=== PATIENT | male | born 1970 | race Caucasian/White ===

== ENCOUNTER 2016-09-17 10:29 | Inpatient (IN) | payer OTHER ==
[2016-09-17 11:02] VITALS: BMI 35.6
--- NOTE | 2016-09-17 12:47 | HP ---
COWS - Scale Resting Pulse: 1= [place] 81-100 Sweatin=Flushed/Facial Moisture Restless Observation: 3= Extraneous Movement Pupil Size: 2= Moderately Dilated Bone or Joint Aches: 2= Severe Diffuse Aches Runny Nose/ Eye Tearin= Runny Nose/Eyes GI Upset > 30mins: 3= Vomiting/Diarrhea Tremor Observation: 2= Slight Tremor Visible Yawning Observation: 2= >3x During Session Anxiety or Irritability: 2=Irritable/Anxious Goose Flesh Skin: 0=Smooth Skin COWS Score: 21 CIWA Score - CIWA Score Nausea/Vomitin Muscle Tremors: 3 Anxiety: 3 Agitation: 3 Paroxysmal Sweats: 2 Orientation: 0-Oriented Tacttile Disturbances: 2-Mild Itch/Numbness/Burn Auditory Disturbances: 2-Mild Harshness/Frighten Visual Disturbances: 2-Mild Sensitivity Headache: 2-Mild CIWA-Ar Total Score: 22 Admission ROS BHS - HPI Chief Complaint: I NEED HELP TO STOP USING HEROIN AND ALCOHOL Allergies/Adverse Reactions: Allergies Allergy/AdvReac Type Severity Reaction Status Date / Time No Known Allergies Allergy Verified 09/17/16 11:51 History of Present Illness: THIS 46 YEARS OLD MALE WITH HEROIN AND ALCOHOL DEPENDENCE,WITHDRAWAL SYMPTOM, LAST DETOX 05/17/15 TO 05/20/15 MULTIPLE ADMISSIONS IN DETOX NICOTINE DEPENDENCE LONGEST PERIOD OF SOBRIETY 7 YEARS Exam Limitations: No Limitations - Ebola screening Have you traveled outside of the country in the last 21 days: No Have you been sick,other than usual withdrawal symptoms: No - Review of Systems Constitutional: Chills, Diaphoresis, Loss of Appetite, Malaise, Night Sweats, Changes in sleep, Weakness EENT: reports: Nose Congestion Respiratory: reports: No Symptoms reported GI: reports: Nausea, Poor Appetite, Vomiting, Abdominal cramping : reports: No Symptoms Reported Musculoskeletal: reports: Back Pain, Joint Pain, Muscle Pain, Joint Stiffness Integumentary: reports: Dryness Neuro: reports: Headache, Tremors Endocrine: reports: No Symptoms Reported Hematology: reports: No Symptoms Reported Psychiatric: reports: other Patient History - Patient Medical History Hx Anemia: No Hx Asthma: No Hx Chronic Obstructive Pulmonary Disease (COPD): No Hx Cancer: No Hx Cardiac Disorders: No Hx Congestive Heart Failure: No Hx Hypertension: No Hx Hypercholesterolemia: No Hx Pacemaker: No HX Cerebrovascular Accident: No Hx Seizures: No Hx Dementia: No Hx Diabetes: No Hx Gastrointestinal Disorders: No Hx Liver Disease: No Hx Genitourinary Disorders: No Hx Sexually Transmitted Disorders: No Hx Renal Disease (ESRD): No Hx Thyroid Disease: No Hx Human Immunodeficiency Virus (HIV): No (04/07 LAST NEGATIVE) Hx Hepatitis C: Yes (TREATED) Hx Depression: No Hx Suicide Attempt: No Hx Bipolar Disorder: No Hx Schizophrenia: No Other Medical History: NO SUICIDAL,NO HOMOCIDAL - Patient Surgical History Past Surgical History: No Hx Neurologic Surgery: No Hx Cataract Extraction: No Hx Cardiac Surgery: No Hx Lung Surgery: No Hx Breast Surgery: No Hx Breast Biopsy: No Hx Abdominal Surgery: No Hx Appendectomy: No Hx Cholecystectomy: No Hx Genitourinary Surgery: No Hx Section: No Hx Orthopedic Surgery: No Anesthesia Reaction: No - PPD History Previous Implant?: Yes Documented Results: Negative w/proof Implanted On Prior [facility] Admission?: Yes Date: 05/27/14 Results: 0 mm PPD to be Administered?: Yes - Smoking Cessation Smoking history: Current every day smoker Have you smoked in the past 12 months: Yes Aproximately how many cigarettes per day: 10 Cigars Per Day: 0 Hx Chewing Tobacco Use: No Initiated information on smoking cessation: Yes 'Breaking Loose' booklet given: 09/17/16 - Substance & Tx. History Hx Alcohol Use: Yes Hx Substance Use: Yes Substance Use Type: Alcohol, Heroin Hx Substance Use Treatment: Yes ([facility] 05/17/15 TO 05/20/15) - Substances Abused Heroin Route: Injection Frequency: Daily Amount used: 15 Age of first use: 14 Date of Last Use: 09/16/16 Alcohol-vodka/beer Route: Oral Frequency: Daily Amount used: 1-2 pts./2-6 pks. Age of first use: 24 Date of Last Use: 09/16/16 Family Disease History - Family Disease History Family Disease History: Diabetes: Father (alcoholism,), Heart Disease: Mother (HTN), Other: Father Admission Physical Exam BHS - Vital Signs Vital Signs: Vital Signs Temperature Pulse Rate 94 H 09/17/16 10:59 Respiratory Rate 20 09/17/16 10:59 Blood Pressure 141/108 09/17/16 10:59 O2 Sat by Pulse Oximetry (%) - Physical General Appearance: Yes: Moderate Distress, Tremorous, Irritable, Sweating, Anxious HEENTM: Yes: Nasal Congestion Respiratory: Yes: Lungs Clear Neck: Yes: Within Normal Limits Breast: Yes: Within Normal Limits Cardiology: Yes: Within Normal Limits, Regular Rhythm, Regular Rate, S1, S2 Abdominal: Yes: Within Normal Limits, Normal Bowel Sounds, Non Tender, Flat, Soft Genitourinary: Yes: Within Normal Limits Back: Yes: Muscle Spasm Musculoskeletal: Yes: Back pain, Joint Stiffness, Muscle Pain Extremities: Yes: Tremors 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 NML intact, Fully Oriented, Alert, Motor Strength 5/5 Integumentary: Yes: Dry Lymphatic: Yes: Within Normal Limits - Diagnostic (1) Alcohol dependence with uncomplicated withdrawal Current Visit: No Status: Chronic (2) Hepatitis C carrier Current Visit: No Status: Chronic (3) Nicotine dependence Current Visit: No Status: Chronic Cleared for Admission [facility] - Detox or Rehab [facility] Level of Care: Medically Managed Detox Regimen/Protocol: Methadone/Librium [facility] Breath Alcohol Content Breath Alcohol Content: 0.019 Urine Drug Screen - Results Drug Screen Negative: No Urine Drug Screen Results: OPI-Opiates, BZO-Benzodiazepines, MTD-Methadone
[2016-09-17] MEDS ORDERED: MAGNESIUM CITRATE 300 ML BOTTLE PO PRN (12:54)
[2016-09-17] MEDS ORDERED: MAGNESIUM HYDROX 2400MG/30ML ORAL SUSPENSION 30 ML CUP PO PRN (12:54)
[2016-09-17] MEDS ORDERED: MAG HYDROX/AL HYDROX/SIMETH 30 ML UNIT-DOSE CUP PO PRN (12:54)
[2016-09-17] MEDS ORDERED: ACETAMINOPHEN 325 MG TABLET (FP) PO PRN (12:54)
[2016-09-17] MEDS ORDERED: hydrOXYzine PAMOATE 50 MG CAPSULE (FP) PO PRN (12:54)
[2016-09-17] MEDS ORDERED: guaiFENesin/D-METHORPHAN HB 10 ML UNIT-DOSE CUPS PO PRN (12:54)
[2016-09-17] MEDS ORDERED: IBUPROFEN 400 MG TABLET (FP) PO PRN (12:54)
[2016-09-17] MEDS ORDERED: P-EPHED 60MG/TRIPROLIDI 2.5MG TABLET PO PRN (12:54)
[2016-09-17] MEDS ORDERED: LOPERAMIDE HCL 2 MG CAPSULE PO PRN (12:54)
[2016-09-17] MEDS ORDERED: MENTHOL/PHENOL 1 EACH UD MM PRN (12:54)
[2016-09-17] MEDS ORDERED: chlordiazePOXIDE HCL 25 MG CAPSULE PO PRN (12:54)
[2016-09-17] MEDS ORDERED: chlordiazePOXIDE HCL 25 MG CAPSULE PO ONE (13:01)
[2016-09-17] MEDS ORDERED: METHADONE HCL 10 MG TABLET (FOR DETOX USE ONLY) PO ONE ×2 (13:05→23:00)
[2016-09-17] MEDS: CYCLOBENZAPRINE HCL 10 MG TABLET (FP) PO PRN (13:38)
[2016-09-17] MEDS: NICOTINE 21 MG/24 HOURS TOPICAL PATCH TD SCH (13:40)
[2016-09-17 16:26] LABS: URINE APPEARANCE CLEAR; URINE BILIRUBIN NEGATIVE (NEGATIVE); URINE COLOR YELLOW; URINE GLUCOSE (UA) NEGATIVE (NEGATIVE); URINE KETONE NEGATIVE (NEGATIVE); URINE LEUK ESTERASE NEGATIVE (NEGATIVE); URINE NITRITE NEGATIVE (NEGATIVE); URINE PROTEIN NEGATIVE (NEGATIVE); URINE UROBILINOGEN NEGATIVE E.U./dl (0.2-1.0)
[2016-09-17 16:30] LABS: URINE BLOOD 1+ (NEGATIVE)
[2016-09-17 16:39] LABS: URINE MUCUS RARE; URINE RBC 13 /hpf (0-3); URINE WBC 3 /hpf (3-5)
--- NOTE | 2016-09-17 16:41 | EKG ---
Test Reason : Blood Pressure : / mmHG Vent. Rate : 089 BPM Atrial Rate : 089 BPM P-R Int : 170 ms QRS Dur : 096 ms QT Int : 380 ms P-R-T Axes : 041 -03 036 degrees QTc Int : 462 ms NORMAL SINUS RHYTHM NORMAL ECG NO PREVIOUS ECGS AVAILABLE Confirmed by MD JESSE, ORI ([id number]) on 09/17/2016 4:41:18 PM Referred By: Confirmed By:ORI MOLINA MD
[2016-09-17] MEDS: chlordiazePOXIDE HCL 25 MG CAPSULE PO SCH ×2 (17:18→23:17)
[2016-09-17] MEDS: THIAMINE HCL 100 MG TABLET (FP) PO SCH (23:15)
[2016-09-17] MEDS: cloNIDine HCL 0.1 MG TABLET PO SCH (23:15)
[2016-09-17] MEDS: diphenhydrAMINE HCL 50 MG CAPSULE PO PRN (23:19)
[2016-09-18] MEDS: chlordiazePOXIDE HCL 25 MG CAPSULE PO SCH ×4 (05:44→22:29)
[2016-09-18] MEDS ORDERED: METHADONE HCL 10 MG TABLET (FOR DETOX USE ONLY) PO SCH (10:00)
[2016-09-18 10:19] LABS: MCH 27.8 pg (25.7-33.7); MCHC 32.6 g/dl (32.0-35.9); MEAN CELL VOLUME 85.5 fl (80-96); MEAN PLT VOLUME 9.6 fl (7.5-11.1); PLATELET COUNT 159 K/MM3 (134-434); RDW 14.4 % (11.9-15.9); WHITE BLOOD COUNT 10.1 K/mm3 (4.0-10.0)
[2016-09-18 10:35] LABS: ALBUMIN 3.9 g/dl (3.4-5.0); ALK PHOS 74 U/L (45-117); ANION GAP 8 (8-16); BILIRUBIN,TOTAL 0.5 mg/dL (0.2-1.0); CALCIUM 8.6 mg/dL (8.5-10.1); CO2 32 mmol/L (21-32); CREATININE 1.1 mg/dL (0.7-1.3); GLUCOSE,RANDOM 106 mg/dL (74-106); SGOT/AST 70 U/L (15-37); SGPT/ALT 41 U/L (12-78); TOT PROT 7.2 g/dl (6.4-8.2)
[2016-09-18] MEDS: NICOTINE 21 MG/24 HOURS TOPICAL PATCH TD SCH (10:51)
[2016-09-18] MEDS: cloNIDine HCL 0.1 MG TABLET PO SCH ×2 (10:52→22:29)
[2016-09-18] MEDS: PRENATAL VITAMINS W/ FOLIC ACID TABLET (FP) PO SCH (10:52)
--- NOTE | 2016-09-18 13:17 | PN ---
S CIWA - CIWA Score Nausea/Vomitin Muscle Tremors: 3 Anxiety: 4-Mod. Anxious/Guarded Agitation: 4-Moderately Restless Paroxysmal Sweats: No Perspiration Orientation: 0-Oriented Tacttile Disturbances: 1-Very Mild Itch/Numbness Auditory Disturbances: 0-None Visual Disturbances: 0-None Headache: 4-Moderately Severe CIWA-Ar Total Score: 19 BHS COWS - Scale Resting Pulse: 0= [place] 80 or Below Sweatin= Chills/Flushing Restless Observation: 1= Difficult to Sit Still Pupil Size: 1= Pupils >than Normal Bone or Joint Aches: 2= Severe Diffuse Aches Runny Nose/ Eye Tearin= Runny Nose/Eyes GI Upset > 30mins: 2= Nausea/Diarrhea Tremor Observation of Outstretched Hands: 1= Tremor [place], Not Seen Yawning Observation: 1= 1-2x During Session Anxiety or Irritability: 2=Irritable/Anxious Goose Flesh Skin: 0=Smooth Skin COWS Score: 13 S Progress Note (SOAP) Subjective: Restlessness, Anxiety, Tremors, Reports sweating Objective: Vital Signs Temperature 96.9 F L 09/18/16 09:57 Pulse Rate 78 09/18/16 09:57 Respiratory Rate 19 09/18/16 09:57 Blood Pressure 142/68 09/18/16 09:57 O2 Sat by Pulse Oximetry (%) Laboratory Last Values WBC 10.1 K/mm3 (4.0-10.0) H D 09/18/16 06:20 RBC 5.44 M/mm3 (4.00-5.60) 09/18/16 06:20 Hgb 15.2 GM/dL (11.7-16.9) 09/18/16 06:20 Hct 46.6 % (35.4-49) 09/18/16 06:20 MCV 85.5 fl (80-96) 09/18/16 06:20 MCHC 32.6 g/dl (32.0-35.9) 09/18/16 06:20 RDW 14.4 % (11.9-15.9) 09/18/16 06:20 Plt Count 159 K/MM3 (134-434) 09/18/16 06:20 MPV 9.6 fl (7.5-11.1) D 09/18/16 06:20 Sodium 140 mmol/L (136-145) 09/18/16 06:20 Potassium 3.7 mmol/L (3.5-5.1) 09/18/16 06:20 Chloride 100 mmol/L (98-107) 09/18/16 06:20 Carbon Dioxide 32 mmol/L (21-32) D 09/18/16 06:20 Anion Gap 8 (8-16) 09/18/16 06:20 BUN 13 mg/dL (7-18) 09/18/16 06:20 Creatinine 1.1 mg/dL (0.7-1.3) D 09/18/16 06:20 Creat Clearance w eGFR > 60 (>60) 09/18/16 06:20 Random Glucose 106 mg/dL (74-106) D 09/18/16 06:20 Calcium 8.6 mg/dL (8.5-10.1) 09/18/16 06:20 Total Bilirubin 0.5 mg/dL (0.2-1.0) D 09/18/16 06:20 AST 70 U/L (15-37) H D 09/18/16 06:20 ALT 41 U/L (12-78) D 09/18/16 06:20 Alkaline Phosphatase 74 U/L (45-117) D 09/18/16 06:20 Total Protein 7.2 g/dl (6.4-8.2) 09/18/16 06:20 Albumin 3.9 g/dl (3.4-5.0) D 09/18/16 06:20 Urine Color Yellow 09/17/16 14:00 Urine Appearance Clear 09/17/16 14:00 Urine pH 6.0 (5.0-8.0) 09/17/16 14:00 Ur Specific [place] 1.017 (1.001-1.035) 09/17/16 14:00 Urine Protein Negative (NEGATIVE) 09/17/16 14:00 Urine Glucose (UA) Negative (NEGATIVE) 09/17/16 14:00 Urine Ketones Negative (NEGATIVE) 09/17/16 14:00 Urine Blood 1+ (NEGATIVE) H 09/17/16 14:00 Urine Nitrite Negative (NEGATIVE) 09/17/16 14:00 Urine Bilirubin Negative (NEGATIVE) 09/17/16 14:00 Urine Urobilinogen Negative E.U./dl (0.2-1.0) 09/17/16 14:00 Ur Leukocyte Esterase Negative (NEGATIVE) 09/17/16 14:00 Urine RBC 13 /hpf (0-3) 09/17/16 14:00 Urine WBC 3 /hpf (3-5) 09/17/16 14:00 Urine Mucus Rare 09/17/16 14:00 Hepatitis C Antibody >11.0 s/co ratio (0.0-0.9) H 09/17/16 12:00 labs noted Assessment: withdrawal symptoms Plan: Continue Detox
[2016-09-18] MEDS ORDERED: IBUPROFEN 600 MG TABLET (FP) PO PRN (13:46)
[2016-09-18] MEDS: THIAMINE HCL 100 MG TABLET (FP) PO SCH (22:29)
[2016-09-18] MEDS: diphenhydrAMINE HCL 50 MG CAPSULE PO PRN (22:30)
[2016-09-19] MEDS: chlordiazePOXIDE HCL 25 MG CAPSULE PO SCH ×2 (06:00→10:40)
[2016-09-19] MEDS: cloNIDine HCL 0.1 MG TABLET PO SCH ×2 (10:40→22:40)
[2016-09-19] MEDS: METHADONE HCL 5 MG TABLET (FOR DETOX USE ONLY) PO SCH (10:40)
[2016-09-19] MEDS: PRENATAL VITAMINS W/ FOLIC ACID TABLET (FP) PO SCH (10:40)
[2016-09-19] MEDS: NICOTINE 21 MG/24 HOURS TOPICAL PATCH TD SCH (10:41)
--- NOTE | 2016-09-19 16:14 | PN ---
S CIWA - CIWA Score Nausea/Vomitin Muscle Tremors: 4-Moderate,w/Arms Extend Anxiety: 4-Mod. Anxious/Guarded Agitation: 4-Moderately Restless Paroxysmal Sweats: No Perspiration Orientation: 0-Oriented Tacttile Disturbances: 1-Very Mild Itch/Numbness Auditory Disturbances: 3-Moderate Harsh/Frighten Visual Disturbances: 0-None Headache: 1-Very Mild CIWA-Ar Total Score: 20 BHS COWS - Scale Resting Pulse: 1= [place] 81-100 Sweatin= Chills/Flushing Restless Observation: 3= Extraneous Movement Pupil Size: 0= Normal to Room Light Bone or Joint Aches: 2= Severe Diffuse Aches Runny Nose/ Eye Tearin= Runny Nose/Eyes GI Upset > 30mins: 2= Nausea/Diarrhea Tremor Observation of Outstretched Hands: 2= Slight Tremor Visible Yawning Observation: 0= None Anxiety or Irritability: 2=Irritable/Anxious Goose Flesh Skin: 0=Smooth Skin COWS Score: 15 S Progress Note (SOAP) Subjective: Anxious, sweating, interrupted sleep, nausea, tremor, back pain Objective: 09/19/16 16:13 Last Vital Signs Temp Pulse Resp BP Pulse Ox 97.0 F L 82 18 142/103 09/19/16 13:39 09/19/16 15:00 09/19/16 13:39 09/19/16 15:00 Laboratory Tests 09/17/16 09/17/16 09/18/16 12:00 14:00 06:20 WBC 10.1 H D RBC 5.44 Hgb 15.2 Hct 46.6 MCV 85.5 MCHC 32.6 RDW 14.4 Plt Count 159 MPV 9.6 D Sodium Potassium Chloride Carbon Dioxide Anion Gap BUN Creatinine Creat Clearance w eGFR Random Glucose Calcium Total Bilirubin AST ALT Alkaline Phosphatase Total Protein Albumin Urine Color Yellow Urine Appearance Clear Urine pH 6.0 Ur Specific [place] 1.017 Urine Protein Negative Urine Glucose (UA) Negative Urine Ketones Negative Urine Blood 1+ H Urine Nitrite Negative Urine Bilirubin Negative Urine Urobilinogen Negative Ur Leukocyte Esterase Negative Urine RBC 13 Urine WBC 3 Urine Mucus Rare RPR Titer Hepatitis C Antibody >11.0 H 09/18/16 09/18/16 06:20 06:20 WBC RBC Hgb Hct MCV MCHC RDW Plt Count MPV Sodium 140 Potassium 3.7 Chloride 100 Carbon Dioxide 32 D Anion Gap 8 BUN 13 Creatinine 1.1 D Creat Clearance w eGFR > 60 Random Glucose 106 D Calcium 8.6 Total Bilirubin 0.5 D AST 70 H D ALT 41 D Alkaline Phosphatase 74 D Total Protein 7.2 Albumin 3.9 D Urine Color Urine Appearance Urine pH Ur Specific [place] Urine Protein Urine Glucose (UA) Urine Ketones Urine Blood Urine Nitrite Urine Bilirubin Urine Urobilinogen Ur Leukocyte Esterase Urine RBC Urine WBC Urine Mucus RPR Titer Nonreactive Hepatitis C Antibody Labs noted Assessment: 09/19/16 16:13 Withdrawal symptoms Plan: Continue detox, continue clonidine for elevated blood pressure
[2016-09-19] MEDS ORDERED: amLODIPine BESYLATE 5 MG TABLET (FP) PO ONE (16:38)
[2016-09-19] MEDS: chlordiazePOXIDE 5 MG CAPSULE PO SCH ×2 (17:40→22:40)
[2016-09-19] MEDS: THIAMINE HCL 100 MG TABLET (FP) PO SCH (22:40)
[2016-09-19] MEDS: amLODIPine BESYLATE 5 MG TABLET (FP) PO SCH (22:40)
[2016-09-19] MEDS: diphenhydrAMINE HCL 50 MG CAPSULE PO PRN (22:41)
[2016-09-20] MEDS: chlordiazePOXIDE 5 MG CAPSULE PO SCH ×2 (05:30→10:31)
[2016-09-20] MEDS ORDERED: ONDANSETRON *ODT* 4 MG TABLET SL PRN (09:30)
[2016-09-20] MEDS ORDERED: ONDANSETRON *ODT* 4 MG TABLET SL ONE (09:45)
[2016-09-20] MEDS: NICOTINE 21 MG/24 HOURS TOPICAL PATCH TD SCH (10:30)
[2016-09-20] MEDS: PRENATAL VITAMINS W/ FOLIC ACID TABLET (FP) PO SCH (10:31)
[2016-09-20] MEDS: amLODIPine BESYLATE 5 MG TABLET (FP) PO SCH ×2 (10:31→21:33)
[2016-09-20] MEDS: METHADONE HCL 5 MG TABLET (FOR DETOX USE ONLY) PO SCH (10:31)
[2016-09-20] MEDS: cloNIDine HCL 0.1 MG TABLET PO SCH ×2 (10:31→21:33)
--- NOTE | 2016-09-20 10:43 | PN ---
BHS Progress Note (SOAP) Subjective: Sweating,interrupted sleep,restless Objective: 09/20/16 10:41 Vital Signs - 8 hr 09/20/16 09/20/16 09/20/16 03:36 06:14 10:00 Temperature 96.9 F L 96.2 F L Pulse Rate 77 79 Respiratory 18 18 18 Rate Blood Pressure 147/101 143/106 Laboratory Tests 09/17/16 09/17/16 09/18/16 12:00 14:00 06:20 WBC 10.1 H D RBC 5.44 Hgb 15.2 Hct 46.6 MCV 85.5 MCHC 32.6 RDW 14.4 Plt Count 159 MPV 9.6 D Sodium Potassium Chloride Carbon Dioxide Anion Gap BUN Creatinine Creat Clearance w eGFR Random Glucose Calcium Total Bilirubin AST ALT Alkaline Phosphatase Total Protein Albumin Urine Color Yellow Urine Appearance Clear Urine pH 6.0 Ur Specific [place] 1.017 Urine Protein Negative Urine Glucose (UA) Negative Urine Ketones Negative Urine Blood 1+ H Urine Nitrite Negative Urine Bilirubin Negative Urine Urobilinogen Negative Ur Leukocyte Esterase Negative Urine RBC 13 Urine WBC 3 Urine Mucus Rare RPR Titer Hepatitis C Antibody >11.0 H 09/18/16 09/18/16 06:20 06:20 WBC RBC Hgb Hct MCV MCHC RDW Plt Count MPV Sodium 140 Potassium 3.7 Chloride 100 Carbon Dioxide 32 D Anion Gap 8 BUN 13 Creatinine 1.1 D Creat Clearance w eGFR > 60 Random Glucose 106 D Calcium 8.6 Total Bilirubin 0.5 D AST 70 H D ALT 41 D Alkaline Phosphatase 74 D Total Protein 7.2 Albumin 3.9 D Urine Color Urine Appearance Urine pH Ur Specific [place] Urine Protein Urine Glucose (UA) Urine Ketones Urine Blood Urine Nitrite Urine Bilirubin Urine Urobilinogen Ur Leukocyte Esterase Urine RBC Urine WBC Urine Mucus RPR Titer Nonreactive Hepatitis C Antibody labs noted Assessment: 09/20/16 10:42 withdrawal sx. Plan: continue detox
[2016-09-20] MEDS: chlordiazePOXIDE HCL 10 MG CAPSULE PO SCH ×2 (17:10→22:34)
[2016-09-20] MEDS: THIAMINE HCL 100 MG TABLET (FP) PO SCH (21:33)
[2016-09-20] MEDS: diphenhydrAMINE HCL 50 MG CAPSULE PO PRN (22:34)
[2016-09-21] MEDS: chlordiazePOXIDE HCL 10 MG CAPSULE PO SCH ×2 (05:38→10:30)
[2016-09-21] MEDS ORDERED: METHADONE HCL 10 MG TABLET (FOR DETOX USE ONLY) PO SCH (10:00)
[2016-09-21] MEDS: amLODIPine BESYLATE 5 MG TABLET (FP) PO SCH ×2 (10:30→22:34)
[2016-09-21] MEDS: cloNIDine HCL 0.1 MG TABLET PO SCH ×2 (10:30→22:34)
[2016-09-21] MEDS: CYCLOBENZAPRINE HCL 10 MG TABLET (FP) PO PRN (10:30)
[2016-09-21] MEDS: PRENATAL VITAMINS W/ FOLIC ACID TABLET (FP) PO SCH (10:30)
[2016-09-21] MEDS: NICOTINE 21 MG/24 HOURS TOPICAL PATCH TD SCH (10:31)
--- NOTE | 2016-09-21 10:55 | PN ---
BHS Progress Note (SOAP) Subjective: ANXIETY,SWEATS,FATIGUE,INTERMITTENT SLEEP--BENADRYL 50 MG LAST NIGHT NOT EFFECTIVE PER PT. Objective: 09/21/16 10:49 Vital Signs 09/21/16 09/21/16 09/21/16 03:30 06:16 09:59 Temperature 95.3 F L 97 F L Pulse Rate 83 84 Respiratory 18 18 19 Rate Blood Pressure 137/95 137/98 Assessment: 09/21/16 10:49 WITHDRAWAL SX Plan: CONTINUE DETOX BENADRYL 100 MG PO HS IF NEEDED.
[2016-09-21] MEDS ORDERED: diphenhydrAMINE HCL 50 MG CAPSULE PO PRN (22:00)
[2016-09-21] MEDS: THIAMINE HCL 100 MG TABLET (FP) PO SCH (22:34)
[2016-09-22] MEDS ORDERED: METHADONE HCL 5 MG TABLET (FOR DETOX USE ONLY) PO SCH (06:00)
[2016-09-22 06:05] VITALS: BP 129/94; PULSE 81; TEMP 97.2
--- NOTE | 2016-09-22 12:30 | DS ---
[facility] Detox Discharge Summary Admission Date: 09/17/16 Discharge Date: 09/22/16 - History Present History: Alcohol Dependence, Opioid Dependence Additional Comments: DETOX COMPLETED. ALERT O X 3. NAD. Pertinent Past History: HEP C - Physical Exam Results Vital Signs: Vital Signs Temperature 97.2 F L 09/22/16 06:05 Pulse Rate 81 09/22/16 06:05 Respiratory Rate 18 09/22/16 06:05 Blood Pressure 129/94 09/22/16 06:05 O2 Sat by Pulse Oximetry (%) Pertinent Admission Physical Exam Findings: WITHDRAWAL SX - Treatment Hospital Course: Detox Protocol Followed, Detoxed Safely, Responded well, Discharged Condition Good - Medication Discharge Medications: Ambulatory Orders NK [No Known Home Medication] 10/12/14 - Diagnosis (1) Alcohol dependence with uncomplicated withdrawal Status: Acute (2) Hepatitis C carrier Status: Chronic (3) Opioid dependence with withdrawal Status: Acute (4) Nicotine dependence Status: Acute Qualifiers: Nicotine product type: cigarettes Substance use status: in withdrawal Qualified Code(s): F17.213 - Nicotine dependence, cigarettes, with withdrawal - AMA Did Patient Leave Against Medical Advice: No
== END 2016-09-22 08:45 | disposition home or self-care (01) | DRG 775 ==
LOC: YASAS 10:29 → Y3N 12:56
PROVIDERS: ADMIT Internal Medicine; ATTEND Internal Medicine
PROC: HZ2ZZZZ Detoxification Services for Substance Abuse Treatment (ICD-10-PCS; principal; 2016-09-22)
DX: F10.230 Alcohol dependence with withdrawal, uncomplicated (principal); F17.210 Nicotine dependence, cigarettes, uncomplicated; B18.2 Chronic viral hepatitis C
CPT/HCPCS: 36415; 80053; 81003; 81015; 85027; 86593; 87522; 93005; 93010

== ENCOUNTER 2016-11-03 13:08 | Inpatient (IN) | payer OTHER ==
[2016-11-03 16:45] VITALS: BMI 32.3
[2016-11-03] MEDS ORDERED: MAGNESIUM HYDROX 2400MG/30ML ORAL SUSPENSION 30 ML CUP PO PRN (17:35)
[2016-11-03] MEDS ORDERED: MENTHOL/PHENOL 1 EACH UD MM PRN (17:35)
[2016-11-03] MEDS ORDERED: guaiFENesin/D-METHORPHAN HB 10 ML UNIT-DOSE CUPS PO PRN (17:35)
[2016-11-03] MEDS ORDERED: MAG HYDROX/AL HYDROX/SIMETH 30 ML UNIT-DOSE CUP PO PRN (17:35)
[2016-11-03] MEDS ORDERED: NICOTINE POLACRILEX 2 MG GUM BC PRN (17:35)
[2016-11-03] MEDS ORDERED: hydrOXYzine PAMOATE 50 MG CAPSULE (FP) PO PRN (17:35)
[2016-11-03] MEDS ORDERED: ACETAMINOPHEN 325 MG TABLET (FP) PO PRN (17:35)
[2016-11-03] MEDS ORDERED: MAGNESIUM CITRATE 300 ML BOTTLE PO PRN (17:35)
[2016-11-03] MEDS ORDERED: P-EPHED 60MG/TRIPROLIDI 2.5MG TABLET PO PRN (17:35)
--- NOTE | 2016-11-03 17:45 | HP ---
COWS - Scale Resting Pulse: 1= [place] 81-100 Sweatin=Flushed/Facial Moisture Restless Observation: 1= Difficult to Sit Still Pupil Size: 2= Moderately Dilated Bone or Joint Aches: 2= Severe Diffuse Aches Runny Nose/ Eye Tearin= Runny Nose/Eyes GI Upset > 30mins: 2= Nausea/Diarrhea Tremor Observation: 2= Slight Tremor Visible Yawning Observation: 1= 1-2x During Session Anxiety or Irritability: 2=Irritable/Anxious Goose Flesh Skin: 3=Pil[place] COWS Score: 20 CIWA Score - CIWA Score Nausea/Vomitin-Mild Nausea/No Vomiting Muscle Tremors: 4-Moderate,w/Arms Extend Anxiety: 4-Mod. Anxious/Guarded Agitation: 4-Moderately Restless Paroxysmal Sweats: 3 Orientation: 0-Oriented Tacttile Disturbances: 0-None Auditory Disturbances: 0-None Visual Disturbances: 0-None Headache: 0-None Present CIWA-Ar Total Score: 16 Admission ROS BHS - HPI Chief Complaint: Withdrawal sx. Allergies/Adverse Reactions: Allergies Allergy/AdvReac Type Severity Reaction Status Date / Time No Known Allergies Allergy Verified 11/03/16 17:19 History of Present Illness: 46 y/o man with a long hx. of Heroin & alcohol dependence is admitted for detox. Pt. has been in previous detox,he reports 5 yrs. drug free following residential program & relocating. Exam Limitations: No Limitations - Ebola screening Have you traveled outside of the country in the last 21 days: No Have you had contact with anyone from an Ebola affected area: No Have you been sick,other than usual withdrawal symptoms: No Do you have a fever: No - Review of Systems Constitutional: Diaphoresis EENT: reports: No Symptoms Reported Respiratory: reports: No Symptoms reported Cardiac: reports: No Symptoms Reported GI: reports: Nausea, Abdominal cramping : reports: No Symptoms Reported Musculoskeletal: reports: Back Pain, Joint Pain, Muscle Pain Integumentary: reports: Sweating Neuro: reports: Tremors, Other (frequent blackouts) Endocrine: reports: No Symptoms Reported Hematology: reports: No Symptoms Reported Psychiatric: reports: No Sypmtoms Reported Other Systems: Reviewed and Negative Patient History - Patient Medical History Hx Anemia: No Hx Asthma: No Hx Chronic Obstructive Pulmonary Disease (COPD): No Hx Cancer: No Hx Cardiac Disorders: No Hx Congestive Heart Failure: No Hx Hypertension: Yes Hx Hypercholesterolemia: No Hx Pacemaker: No HX Cerebrovascular Accident: No Hx Seizures: No Hx Dementia: No Hx Diabetes: No Hx Gastrointestinal Disorders: No Hx Liver Disease: Yes Hx Genitourinary Disorders: No Hx Sexually Transmitted Disorders: No Hx Renal Disease (ESRD): No Hx Thyroid Disease: No Hx Human Immunodeficiency Virus (HIV): No Hx Hepatitis C: Yes (TREATED) Hx Depression: No Hx Suicide Attempt: No Hx Bipolar Disorder: No Hx Schizophrenia: No - Patient Surgical History Past Surgical History: No Hx Neurologic Surgery: No Hx Cataract Extraction: No Hx Cardiac Surgery: No Hx Lung Surgery: No Hx Breast Surgery: No Hx Breast Biopsy: No Hx Abdominal Surgery: No Hx Appendectomy: No Hx Cholecystectomy: No Hx Genitourinary Surgery: No Hx Section: No Hx Orthopedic Surgery: No Anesthesia Reaction: No - PPD History Previous Implant?: Yes Documented Results: Negative w/proof Implanted On Prior R Admission?: Yes Date: 09/19/16 Results: 0 mm PPD to be Administered?: No - Smoking Cessation Smoking history: Current every day smoker Have you smoked in the past 12 months: Yes Aproximately how many cigarettes per day: 10 Cigars Per Day: 0 Hx Chewing Tobacco Use: No Initiated information on smoking cessation: Yes 'Breaking Loose' booklet given: 11/03/16 - Substance & Tx. History Hx Alcohol Use: Yes Hx Substance Use: Yes Substance Use Type: Alcohol, Cocaine, Heroin Hx Substance Use Treatment: Yes (detox) - Substances Abused Heroin Route: Injection Frequency: Daily Amount used: 20 bags Age of first use: 12 Date of Last Use: 11/03/16 Cocaine Route: Injection Frequency: Daily Amount used: $50 Age of first use: 24 Date of Last Use: 11/02/16 Alcohol-vodka/beer Route: Oral Frequency: Daily Amount used: 1 pt./2-6 pks. Age of first use: 24 Date of Last Use: 11/03/16 Family Disease History - Family Disease History Family Disease History: Diabetes: Father (alcoholism,), Heart Disease: Mother (HTN), Other: Father Admission Physical Exam BHS - Vital Signs Vital Signs: Vital Signs - 24 hr 11/03/16 16:43 Temperature 98.1 F Pulse Rate 86 Respiratory 20 Rate Blood Pressure 152/110 - Physical General Appearance: Yes: Tremorous, Irritable, Sweating, Anxious HEENTM: Yes: Within Normal Limits Respiratory: Yes: Chest Non-Tender, Lungs Clear Neck: Yes: Supple Breast: Yes: Breast Exam Deferred Cardiology: Yes: Regular Rhythm, Regular Rate, S1, S2 Abdominal: Yes: Normal Bowel Sounds, Non Tender, Soft Genitourinary: Yes: Within Normal Limits Back: Yes: Within Normal Limits Musculoskeletal: Yes: Within Normal Limits Extremities: Yes: Tremors Neurological: Yes: Fully Oriented, Alert Integumentary: Yes: Diaphoresis, Track Daniels Lymphatic: Yes: Within Normal Limits - Diagnostic (1) Alcohol dependence with uncomplicated withdrawal Current Visit: Yes Status: Acute (2) Nicotine dependence Current Visit: Yes Status: Acute Qualifiers: Nicotine product type: cigarettes Substance use status: in withdrawal Qualified Code(s): F17.213 - Nicotine dependence, cigarettes, with withdrawal (3) Opioid dependence with withdrawal Current Visit: Yes Status: Acute (4) Cocaine dependence Current Visit: Yes Status: Chronic Qualifiers: Substance use status: uncomplicated Qualified Code(s): F14.20 - Cocaine dependence, uncomplicated (5) Hepatitis C carrier Current Visit: No Status: Chronic (6) HTN (hypertension) Current Visit: Yes Status: Acute Cleared for Admission S - Detox or Rehab [facility] Level of Care: Medically Managed Detox Regimen/Protocol: Methadone/Librium S Breath Alcohol Content Breath Alcohol Content: 0 Urine Drug Screen - Results Drug Screen Negative: No Urine Drug Screen Results: SILVESTRE-Cocaine, OPI-Opiates, PCP-Phencyclidine, BZO- Benzodiazepines, MTD-Methadone
[2016-11-03] MEDS ORDERED: METHADONE HCL 10 MG TABLET (FOR DETOX USE ONLY) PO ONE ×2 (18:45→23:00)
[2016-11-03] MEDS ORDERED: chlordiazePOXIDE HCL 25 MG CAPSULE PO ONE (18:45)
[2016-11-03] MEDS: NICOTINE 21 MG/24 HOURS TOPICAL PATCH TD SCH (18:58)
[2016-11-03] MEDS: amLODIPine BESYLATE 10 MG TABLET (FP) PO SCH (18:59)
[2016-11-03] MEDS: diphenhydrAMINE HCL 50 MG CAPSULE PO PRN (22:50)
[2016-11-03] MEDS: THIAMINE HCL 100 MG TABLET (FP) PO SCH (22:50)
[2016-11-03] MEDS: chlordiazePOXIDE HCL 25 MG CAPSULE PO SCH (22:50)
[2016-11-04 01:05] LABS: URINE APPEARANCE CLEAR; URINE BILIRUBIN NEGATIVE (NEGATIVE); URINE BLOOD NEGATIVE (NEGATIVE); URINE COLOR YELLOW; URINE GLUCOSE (UA) NEGATIVE (NEGATIVE); URINE KETONE NEGATIVE (NEGATIVE); URINE LEUK ESTERASE NEGATIVE (NEGATIVE); URINE NITRITE NEGATIVE (NEGATIVE); URINE PROTEIN NEGATIVE (NEGATIVE); URINE UROBILINOGEN NEGATIVE E.U./dl (0.2-1.0)
[2016-11-04] MEDS: chlordiazePOXIDE HCL 25 MG CAPSULE PO SCH ×4 (05:09→22:19)
[2016-11-04 09:47] LABS: MCH 27.8 pg (25.7-33.7); MCHC 32.6 g/dl (32.0-35.9); MEAN PLT VOLUME 9.3 fl (7.5-11.1); PLATELET COUNT 172 K/MM3 (134-434); RDW 15.2 % (11.9-15.9); WHITE BLOOD COUNT 6.7 K/mm3 (4.0-10.0)
[2016-11-04 09:51] LABS: ALBUMIN 4.3 g/dl (3.4-5.0); GLUCOSE,RANDOM 102 mg/dL (74-106)
[2016-11-04 09:56] LABS: ALK PHOS 76 U/L (45-117); ANION GAP 10 (8-16); BILIRUBIN,TOTAL 0.7 mg/dL (0.2-1.0); CO2 28 mmol/L (21-32); COCKROFT - GAULT 117.17; SGOT/AST 21 U/L (15-37); SGPT/ALT 27 U/L (12-78); TOT PROT 8.2 g/dl (6.4-8.2)
[2016-11-04] MEDS ORDERED: METHADONE HCL 10 MG TABLET (FOR DETOX USE ONLY) PO SCH (10:00)
[2016-11-04] MEDS ORDERED: LIDOCAINE 5% TOPICAL PATCH TP ONE (10:20)
--- NOTE | 2016-11-04 10:20 | PN ---
S CIWA - CIWA Score Nausea/Vomitin Muscle Tremors: 3 Anxiety: 3 Agitation: 2 Paroxysmal Sweats: 3 Orientation: 0-Oriented Tacttile Disturbances: 2-Mild Itch/Numbness/Burn Auditory Disturbances: 0-None Visual Disturbances: 0-None Headache: 0-None Present CIWA-Ar Total Score: 16 BHS COWS - Scale Resting Pulse: 0= [place] 80 or Below Sweatin= Chills/Flushing Restless Observation: 1= Difficult to Sit Still Pupil Size: 1= Pupils >than Normal Bone or Joint Aches: 2= Severe Diffuse Aches Runny Nose/ Eye Tearin= Nasal Congestion GI Upset > 30mins: 2= Nausea/Diarrhea Tremor Observation of Outstretched Hands: 2= Slight Tremor Visible Yawning Observation: 0= None Anxiety or Irritability: 2=Irritable/Anxious Goose Flesh Skin: 0=Smooth Skin COWS Score: 12 BHS Progress Note (SOAP) Subjective: interrupted sleep, sweats, nausea, joint pains Objective: 11/04/16 10:18 Vital Signs Temperature 98.2 F 11/04/16 09:57 Pulse Rate 83 11/04/16 09:57 Respiratory Rate 18 11/04/16 09:57 Blood Pressure 135/91 11/04/16 09:57 O2 Sat by Pulse Oximetry (%) Laboratory Tests 11/03/16 11/04/16 11/04/16 23:02 06:00 06:00 WBC 6.7 D RBC 5.89 H Hgb 16.4 Hct 50.1 H MCV 85.0 MCHC 32.6 RDW 15.2 Plt Count 172 MPV 9.3 Sodium 137 Potassium 4.3 Chloride 99 Carbon Dioxide 28 Anion Gap 10 BUN 14 Creatinine 1.0 Creat Clearance w eGFR > 60 Random Glucose 102 Calcium 9.0 Total Bilirubin 0.7 D AST 21 D ALT 27 D Alkaline Phosphatase 76 Total Protein 8.2 Albumin 4.3 Urine Color Yellow Urine Appearance Clear Urine pH 5.0 Ur Specific [place] 1.026 Urine Protein Negative Urine Glucose (UA) Negative Urine Ketones Negative Urine Blood Negative Urine Nitrite Negative Urine Bilirubin Negative Urine Urobilinogen Negative Ur Leukocyte Esterase Negative pt aox3 in nad ambulating Assessment: 11/04/16 10:19 withdrawal sx's Plan: cont. detox increase fluids lidocaine patch
[2016-11-04] MEDS: amLODIPine BESYLATE 10 MG TABLET (FP) PO SCH (10:28)
[2016-11-04] MEDS: PRENATAL VITAMINS W/ FOLIC ACID TABLET (FP) PO SCH (10:28)
[2016-11-04] MEDS: NICOTINE 21 MG/24 HOURS TOPICAL PATCH TD SCH (10:28)
--- NOTE | 2016-11-04 11:46 | EKG ---
Test Reason : Blood Pressure : / mmHG Vent. Rate : 085 BPM Atrial Rate : 085 BPM P-R Int : 162 ms QRS Dur : 092 ms QT Int : 386 ms P-R-T Axes : 053 009 064 degrees QTc Int : 459 ms NORMAL SINUS RHYTHM NORMAL ECG WHEN COMPARED WITH ECG OF 17-SEP-2016 13:49, NO SIGNIFICANT CHANGE WAS FOUND Confirmed by BIJAL OSBORN MD ([id number]) on 11/04/2016 11:46:19 AM Referred By: Confirmed By:BIJAL OSBORN MD
[2016-11-04] MEDS: chlordiazePOXIDE HCL 25 MG CAPSULE PO PRN (14:28)
[2016-11-04] MEDS: diphenhydrAMINE HCL 50 MG CAPSULE PO PRN (22:19)
[2016-11-04] MEDS: THIAMINE HCL 100 MG TABLET (FP) PO SCH (22:52)
[2016-11-05] MEDS: chlordiazePOXIDE HCL 25 MG CAPSULE PO SCH ×3 (05:20→17:10)
[2016-11-05] MEDS: METHADONE HCL 5 MG TABLET (FOR DETOX USE ONLY) PO SCH (10:03)
[2016-11-05] MEDS: amLODIPine BESYLATE 10 MG TABLET (FP) PO SCH (10:03)
[2016-11-05] MEDS: PRENATAL VITAMINS W/ FOLIC ACID TABLET (FP) PO SCH (10:03)
[2016-11-05] MEDS: NICOTINE 21 MG/24 HOURS TOPICAL PATCH TD SCH (10:03)
[2016-11-05] MEDS: LIDOCAINE 5% TOPICAL PATCH TP SCH (10:04)
--- NOTE | 2016-11-05 12:00 | PN ---
[facility] CIWA - CIWA Score Nausea/Vomitin Muscle Tremors: 4-Moderate,w/Arms Extend Anxiety: 2 Agitation: 3 Paroxysmal Sweats: 3 Orientation: 0-Oriented Tacttile Disturbances: 2-Mild Itch/Numbness/Burn Auditory Disturbances: 2-Mild Harshness/Frighten Visual Disturbances: 0-None Headache: 0-None Present CIWA-Ar Total Score: 19 S COWS - Scale Resting Pulse: 0= CT 80 or Below Sweatin= Chills/Flushing Restless Observation: 1= Difficult to Sit Still Pupil Size: 0= Normal to Room Light Bone or Joint Aches: 2= Severe Diffuse Aches Runny Nose/ Eye Tearin= None GI Upset > 30mins: 2= Nausea/Diarrhea Tremor Observation of Outstretched Hands: 2= Slight Tremor Visible Yawning Observation: 1= 1-2x During Session Anxiety or Irritability: 2=Irritable/Anxious Goose Flesh Skin: 3=Piloerection COWS Score: 14 [facility] Progress Note (SOAP) Subjective: Sweating, Stomach Cramping, H/a, Interrupted sleep, Tremors, Body Aches. Objective: PT. A & O X 3. 11/05/16 11:58 Vital Signs Temperature 96.8 F L 11/05/16 11:14 Pulse Rate 67 11/05/16 11:14 Respiratory Rate 67 H 11/05/16 11:14 Blood Pressure 148/100 11/05/16 11:14 O2 Sat by Pulse Oximetry (%) Laboratory Last Values WBC 6.7 K/mm3 (4.0-10.0) D 11/04/16 06:00 RBC 5.89 M/mm3 (4.00-5.60) H 11/04/16 06:00 Hgb 16.4 GM/dL (11.7-16.9) 11/04/16 06:00 Hct 50.1 % (35.4-49) H 11/04/16 06:00 MCV 85.0 fl (80-96) 11/04/16 06:00 MCHC 32.6 g/dl (32.0-35.9) 11/04/16 06:00 RDW 15.2 % (11.9-15.9) 11/04/16 06:00 Plt Count 172 K/MM3 (134-434) 11/04/16 06:00 MPV 9.3 fl (7.5-11.1) 11/04/16 06:00 Sodium 137 mmol/L (136-145) 11/04/16 06:00 Potassium 4.3 mmol/L (3.5-5.1) 11/04/16 06:00 Chloride 99 mmol/L (98-107) 11/04/16 06:00 Carbon Dioxide 28 mmol/L (21-32) 11/04/16 06:00 Anion Gap 10 (8-16) 11/04/16 06:00 BUN 14 mg/dL (7-18) 11/04/16 06:00 Creatinine 1.0 mg/dL (0.7-1.3) 11/04/16 06:00 Creat Clearance w eGFR > 60 (>60) 11/04/16 06:00 Random Glucose 102 mg/dL (74-106) 11/04/16 06:00 Calcium 9.0 mg/dL (8.5-10.1) 11/04/16 06:00 Total Bilirubin 0.7 mg/dL (0.2-1.0) D 11/04/16 06:00 AST 21 U/L (15-37) D 11/04/16 06:00 ALT 27 U/L (12-78) D 11/04/16 06:00 Alkaline Phosphatase 76 U/L (45-117) 11/04/16 06:00 Total Protein 8.2 g/dl (6.4-8.2) 11/04/16 06:00 Albumin 4.3 g/dl (3.4-5.0) 11/04/16 06:00 Urine Color Yellow 11/03/16 23:02 Urine Appearance Clear 11/03/16 23:02 Urine pH 5.0 (5.0-8.0) 11/03/16 23:02 Ur Specific [place] 1.026 (1.001-1.035) 11/03/16 23:02 Urine Protein Negative (NEGATIVE) 11/03/16 23:02 Urine Glucose (UA) Negative (NEGATIVE) 11/03/16 23:02 Urine Ketones Negative (NEGATIVE) 11/03/16 23:02 Urine Blood Negative (NEGATIVE) 11/03/16 23:02 Urine Nitrite Negative (NEGATIVE) 11/03/16 23:02 Urine Bilirubin Negative (NEGATIVE) 11/03/16 23:02 Urine Urobilinogen Negative E.U./dl (0.2-1.0) 11/03/16 23:02 Ur Leukocyte Esterase Negative (NEGATIVE) 11/03/16 23:02 RPR Titer Nonreactive (NONREACTIVE) 11/04/16 06:00 LABS NOTED. Assessment: 11/05/16 11:59 WITHDRAWAL SYMPTOMS. Plan: CONTINUE DETOX. CONTINUE TO MONITOR BP.
[2016-11-05] MEDS: chlordiazePOXIDE HCL 25 MG CAPSULE PO PRN (12:38)
[2016-11-05] MEDS: chlordiazePOXIDE 5 MG CAPSULE PO SCH (22:07)
[2016-11-05] MEDS: THIAMINE HCL 100 MG TABLET (FP) PO SCH (22:08)
[2016-11-05] MEDS: diphenhydrAMINE HCL 50 MG CAPSULE PO PRN (22:09)
[2016-11-06] MEDS: chlordiazePOXIDE 5 MG CAPSULE PO SCH ×3 (06:26→17:59)
[2016-11-06] MEDS: PRENATAL VITAMINS W/ FOLIC ACID TABLET (FP) PO SCH (10:16)
[2016-11-06] MEDS: METHADONE HCL 5 MG TABLET (FOR DETOX USE ONLY) PO SCH (10:17)
[2016-11-06] MEDS: amLODIPine BESYLATE 10 MG TABLET (FP) PO SCH (10:17)
[2016-11-06] MEDS: LIDOCAINE 5% TOPICAL PATCH TP SCH (10:18)
[2016-11-06] MEDS: NICOTINE 21 MG/24 HOURS TOPICAL PATCH TD SCH (10:19)
--- NOTE | 2016-11-06 14:32 | PN ---
[facility] Progress Note (SOAP) Subjective: ALERT,IRRITABLE,ANXIOUS,INTERRUPTED SLEEP,PAIN IN THE BODY AND BACK Objective: 11/06/16 14:31 Vital Signs Temperature 97.9 F 11/06/16 10:28 Pulse Rate 80 11/06/16 10:28 Respiratory Rate 16 11/06/16 10:28 Blood Pressure 112/66 11/06/16 10:28 O2 Sat by Pulse Oximetry (%) Assessment: 11/06/16 14:31 WITHDRAWAL SYMPTOM Plan: CONTINUE DETOX
[2016-11-06] MEDS: chlordiazePOXIDE HCL 25 MG CAPSULE PO PRN (14:46)
[2016-11-06] MEDS ORDERED: chlordiazePOXIDE 5 MG CAPSULE ONE (21:06)
[2016-11-06] MEDS: diphenhydrAMINE HCL 50 MG CAPSULE PO PRN (22:03)
[2016-11-06] MEDS: chlordiazePOXIDE HCL 10 MG CAPSULE PO SCH (22:03)
[2016-11-06] MEDS: THIAMINE HCL 100 MG TABLET (FP) PO SCH (22:03)
[2016-11-06] MEDS: cloNIDine HCL 0.1 MG TABLET PO SCH (22:03)
[2016-11-06] MEDS: CYCLOBENZAPRINE HCL 10 MG TABLET (FP) PO PRN (22:03)
[2016-11-07] MEDS ORDERED: chlordiazePOXIDE 5 MG CAPSULE ONE ×2 (04:29→08:41)
[2016-11-07] MEDS: chlordiazePOXIDE HCL 10 MG CAPSULE PO SCH ×3 (05:49→18:45)
[2016-11-07] MEDS ORDERED: METHADONE HCL 10 MG TABLET (FOR DETOX USE ONLY) PO SCH (10:00)
[2016-11-07] MEDS: amLODIPine BESYLATE 10 MG TABLET (FP) PO SCH (10:25)
[2016-11-07] MEDS: cloNIDine HCL 0.1 MG TABLET PO SCH ×2 (10:25→22:18)
[2016-11-07] MEDS: CYCLOBENZAPRINE HCL 10 MG TABLET (FP) PO PRN ×2 (10:25→22:18)
[2016-11-07] MEDS: NICOTINE 21 MG/24 HOURS TOPICAL PATCH TD SCH (10:26)
[2016-11-07] MEDS: PRENATAL VITAMINS W/ FOLIC ACID TABLET (FP) PO SCH (10:27)
[2016-11-07] MEDS: LIDOCAINE 5% TOPICAL PATCH TP SCH (11:26)
--- NOTE | 2016-11-07 13:50 | PN ---
S Progress Note (SOAP) Subjective: ALERT,IRRITABLE,ANXIOUS,INTERRUPTED SLEEP Objective: 11/07/16 13:49 Vital Signs Temperature 97 F L 11/07/16 10:50 Pulse Rate 71 11/07/16 10:50 Respiratory Rate 18 11/07/16 10:50 Blood Pressure 124/101 11/07/16 10:50 O2 Sat by Pulse Oximetry (%) Assessment: 11/07/16 13:49 WITHDRAWAL SYMPTOM Plan: CONTINUE DETOX,DISCHARGE IN AM
[2016-11-07] MEDS ORDERED: hydrOXYzine PAMOATE 50 MG CAPSULE (FP) PO SCH (22:00)
[2016-11-07] MEDS: THIAMINE HCL 100 MG TABLET (FP) PO SCH (22:17)
[2016-11-08] MEDS ORDERED: METHADONE HCL 5 MG TABLET (FOR DETOX USE ONLY) PO SCH (06:00)
[2016-11-08 06:30] VITALS: BP 128/89; PULSE 80; TEMP 97.3
--- NOTE | 2016-11-08 08:01 | PN ---
S Progress Note (SOAP) Subjective: ALERT,NO COMPLAINT Objective: 11/08/16 08:00 Vital Signs Temperature 97.3 F L 11/08/16 06:00 Pulse Rate 80 11/08/16 06:00 Respiratory Rate 18 11/08/16 06:00 Blood Pressure 128/89 11/08/16 06:00 O2 Sat by Pulse Oximetry (%) Assessment: 11/08/16 08:00 DETOX COMPLETED,NO WITHDRAWAL SYMPTOM Plan: DISCHARGE TODAY,FOLLOW UP WITH AFTER CARE PROGRAM ARRANGEMENT
--- NOTE | 2016-11-08 08:07 | DS ---
[facility] Detox Discharge Summary Admission Date: 11/03/16 Discharge Date: 11/08/16 - History Present History: Alcohol Dependence, Cocaine Dependence, Opioid Dependence Additional Comments: FOLLOW UP WITH AFTER CARE PROGRAM ARRANGEMENT Pertinent Past History: HEPATITIS C HYPERTENSION - Physical Exam Results Vital Signs: Vital Signs Temperature 97.3 F L 11/08/16 06:00 Pulse Rate 80 11/08/16 06:00 Respiratory Rate 18 11/08/16 06:00 Blood Pressure 128/89 11/08/16 06:00 O2 Sat by Pulse Oximetry (%) Pertinent Admission Physical Exam Findings: WITHDRAWAL SYMPTOM - Treatment Hospital Course: Detox Protocol Followed, Detoxed Safely, Responded well, Discharged Condition Good - Medication Discharge Medications: Ambulatory Orders NK [No Known Home Medication] 10/12/14 - Diagnosis (1) Alcohol dependence with uncomplicated withdrawal Status: Acute (2) HTN (hypertension) Status: Acute (3) Nicotine dependence Status: Acute Qualifiers: Nicotine product type: cigarettes Substance use status: in withdrawal Qualified Code(s): F17.213 - Nicotine dependence, cigarettes, with withdrawal (4) Opioid dependence with withdrawal Status: Acute (5) Insomnia Status: Chronic (6) Weight decreased Status: Chronic (7) Hepatitis C Status: Acute - AMA Did Patient Leave Against Medical Advice: No
== END 2016-11-08 07:36 | disposition home or self-care (01) | DRG 773 ==
LOC: YASAS 13:08 → Y6N 18:12
PROVIDERS: ADMIT Internal Medicine Addiction Medicine; ATTEND Internal Medicine Addiction Medicine
PROC: HZ2ZZZZ Detoxification Services for Substance Abuse Treatment (ICD-10-PCS; principal; 2016-11-03)
DX: F11.23 Opioid dependence with withdrawal (principal); F10.230 Alcohol dependence with withdrawal, uncomplicated; F14.20 Cocaine dependence, uncomplicated; F17.213 Nicotine dependence, cigarettes, with withdrawal; I10 Essential (primary) hypertension; G47.00 Insomnia, unspecified; B18.2 Chronic viral hepatitis C; Z87.898 Personal history of other specified conditions
CPT/HCPCS: 36415; 80053; 81003; 85027; 86593; 93005; 93010